=== PATIENT | male | born 1945 | race Caucasian/White ===

== ENCOUNTER 2017-02-10 08:24 | Emergency (ER) | payer MEDICARE ==
[~2017-02-10] VITALS: Ht 188 cm; Wt 136.1 kg
[2017-02-10] MEDS ORDERED: AMLODIPINE BESY10 MG PO (10:14)
[2017-02-10] MEDS ORDERED: LOPRESSOR50 MG PO (10:15)
[2017-02-10] MEDS ORDERED: COZAAR100 MG PO (10:17)
[2017-02-10] MEDS ORDERED: LIPITOR40 MG PO (10:18)
[2017-02-10] MEDS ORDERED: ASPIRIN81 MG PO (10:18)
[2017-02-10] MEDS ORDERED: LASIX40 MG PO (10:19)
[2017-02-10] MEDS ORDERED: CATAPRES0.3 MG PO (10:19)
[2017-02-10] MEDS ORDERED: PLAVIX75 MG PO (10:19)
[2017-02-10] MEDS ORDERED: LANTUS100 UNIT/1 SUBCUT (10:20)
[2017-02-10] MEDS ORDERED: NEURONTIN300 MG PO (10:20)
[2017-02-10] MEDS ORDERED: NOVOLOG100 UNIT/2 SUBCUT (10:21)
[2017-02-10] MEDS ORDERED: MINOXIDIL2.5 MG PO (10:21)
[2017-02-10] MEDS ORDERED: CEROVITE ADVANC1 TAB PO (10:21)
[2017-02-10] MEDS ORDERED: ONETOUCH ULTRA1 EAC1 MISC (10:23)
[2017-02-10] MEDS ORDERED: ALDACTONE25 MG PO (10:23)
[2017-02-10] MEDS ORDERED: DUONEB 3.0-0.5 M3 ML INH (10:25)
[2017-02-10] MEDS ORDERED: SYMBICORT 160-4.6 GM INH (10:25)
== END 2017-02-10 11:45 | disposition short-term general hospital (02) ==
LOC: ER 08:24
DX: L03.115 Cellulitis of right lower limb (principal); D72.829 Elevated white blood cell count, unspecified; I73.9 Peripheral vascular disease, unspecified; Z89.612 Acquired absence of left leg above knee; J44.9 Chronic obstructive pulmonary disease, unspecified; I25.10 Atherosclerotic heart disease of native coronary artery without angina pectoris; E78.5 Hyperlipidemia, unspecified; I12.9 Hypertensive chronic kidney disease with stage 1 through stage 4 chronic kidney disease, or unspecified chronic kidney disease; E11.22 Type 2 diabetes mellitus with diabetic chronic kidney disease; N18.9 Chronic kidney disease, unspecified; Z87.891 Personal history of nicotine dependence; Z79.82 Long term (current) use of aspirin; Z79.899 Other long term (current) drug therapy; Z79.4 Long term (current) use of insulin; Z90.49 Acquired absence of other specified parts of digestive tract; Z98.890 Other specified postprocedural states
CPT/HCPCS: J0696

== ENCOUNTER → 2017-03-03 | Outpatient (CLI) | payer OTHER, MEDICARE ==
[~2017-03-03] MED LIST: ALDACTONE25 MG PO; AMLODIPINE BESY10 MG PO; ASPIRIN81 MG PO; CATAPRES0.3 MG PO; CEROVITE ADVANC1 TAB PO; COZAAR100 MG PO; DUONEB 3.0-0.5 M3 ML INH; LANTUS100 UNIT/1 SUBCUT; LASIX40 MG PO; LIPITOR40 MG PO; LOPRESSOR50 MG PO; MINOXIDIL2.5 MG PO; NEURONTIN300 MG PO; NOVOLOG100 UNIT/2 SUBCUT; ONETOUCH ULTRA1 EAC1 MISC; PLAVIX75 MG PO; SYMBICORT 160-4.6 GM INH
== END | disposition short-term general hospital (02) ==
LOC: CLVASC 12:48
DX: I73.9 Peripheral vascular disease, unspecified (principal); L03.115 Cellulitis of right lower limb; Z89.612 Acquired absence of left leg above knee; Z95.828 Presence of other vascular implants and grafts

== ENCOUNTER → 2017-04-07 | Outpatient (CLI) | payer OTHER | END | disposition short-term general hospital (02) | LOC: CLVASC 02:42 | DX: I73.9 Peripheral vascular disease, unspecified (principal); R93.6 Abnormal findings on diagnostic imaging of limbs; Z89.612 Acquired absence of left leg above knee; Z95.828 Presence of other vascular implants and grafts ==